=== PATIENT | male | born 1960 | race American Indian/Alaskan Native ===

== ENCOUNTER 2016-09-12 10:17 | Emergency (ER) | payer BC ==
[2016-09-12 11:50] LABS: Eosinophils % (Auto) 3.9 % (0.0-4.3); Hematocrit 46.2 % (35.5-45.6); Hemoglobin 14.8 gm/dl (11.8-15.2); Mean Corpuscular HGB Conc 32 % (32-34); Mean Corpuscular Hemoglobin 28 pg (28-32); Mean Corpuscular Volume 87 fl (84-94); Platelet Count 379 K/mm3 (140-440); Red Cell Distribution Width 13.9 % (13.2-15.2); White Blood Count 10.2 K/mm3 (4.5-11.0)
[2016-09-12 12:00] LABS: Bilirubin,Urine NEG (Negative); Blood,Urine NEG (Negative); Ketones,Urine NEG (Negative); Leukocyte Esterase,Urine NEG (Negative); Mucus,Urine 1+ /HPF; Nitrite,Urine NEG (Negative); Protein,Urine <15 mg/dL mg/dL (Negative); Urobilinogen,Urine < 2.0 mg/dL (<2.0)
[2016-09-12 12:03] LABS: Anion Gap 15 mmol/L; Blood Urea Nitrogen 7 mg/dL (9-20); Calcium 9.2 mg/dL (8.4-10.2); Carbon Dioxide 30 mmol/L (22-30); Chloride 101.2 mmol/L (98-107); Glucose 107 mg/dL (75-100); Potassium 3.9 mmol/L (3.6-5.0); Sodium 142 mmol/L (137-145)
[2016-09-12] MEDS ORDERED: MORPHINE IV ONE (13:26)
[2016-09-12] MEDS ORDERED: ZOFRAN IV ONE (13:26)
[2016-09-12] MEDS ORDERED: NACL 0.9% 1000 ML 1,000 ML IV ONE (13:26)
--- NOTE | 2016-09-12 13:28 | Emergency Department Report ---
HPI - General Chief Complaint: Abdominal Pain Time Seen by Provider: 09/12/16 13:16 - HPI HPI: This is a 56-year-old Afro-[place] male who presents to the emergency department with complaint of a 2 week history of abdominal pains. It is mostly in the upper abdomen. It is associated with one episode of nausea and vomiting both today and 2 weeks ago. He says that he has had decreased bowel movements but did have one today. The bowel movements appear to be changing color from [place] green to a darker green/black. He denies any past medical history. He has been treating himself with Pepto-Bismol and Prilosec without much relief. He has a decreased appetite. He denies any fever, dysuria, obvious rectal bleeding. He does not have a primary care doctor. No recent travel or sick contacts at home. ED Past Medical Hx - Medications Home Medications: Home Medications Medication Instructions Recorded Confirmed Last Taken Type ALBUTEROL Inhaler [ProAir HFA 2 puff IH QID PRN #1 inhalation 09/12/16 Unknown Rx Inhaler] HYDROcodone/APAP 5-325 [[place] 1 each PO Q6HR PRN #10 tablet 09/12/16 Unknown Rx 5/325] Ondansetron [Zofran Odt] 4 mg PO Q8H PRN #10 tab.rapdis 09/12/16 Unknown Rx ED Review of Systems ROS: Stated complaint: VOMITING/ABD PAIN Other details as noted in HPI Comment: All other systems reviewed and negative Constitutional: denies: chills, fever Eyes: denies: eye pain, eye discharge, vision change ENT: denies: ear pain, throat pain Respiratory: denies: cough, shortness of breath, wheezing Cardiovascular: denies: chest pain, palpitations Gastrointestinal: abdominal pain, nausea, vomiting Genitourinary: denies: urgency, dysuria Musculoskeletal: denies: back pain, joint swelling, arthralgia Skin: denies: rash, lesions Neurological: denies: headache, weakness, paresthesias Physical Exam - Physical Exam Vital Signs: Vital Signs 09/12/16 11:17 Temperature 98.1 F Pulse Rate 98 H Respiratory 16 Rate Blood Pressure 144/84 O2 Sat by Pulse 98 Oximetry Physical Exam: GENERAL: The patient is well-developed well-nourished. HEENT: Normocephalic. Atraumatic. Extraocular motions are intact. Patient has moist mucous membranes. Pupils equal reactive to light bilaterally. NECK: Supple. Trachea is midline. CHEST/LUNGS: Clear to auscultation. There is no respiratory distress noted. No cough heard during examination. HEART/CARDIOVASCULAR: Regular. There is no tachycardia. There is no gallop rub or murmur. ABDOMEN: Abdomen is soft. There is some tenderness to palpation to the left side of the abdomen. No guarding rebound tenderness. No peritoneal signs with heel strike. Patient has normal bowel sounds. There is no abdominal distention. SKIN: Skin is warm and dry. NEURO: The patient is awake, alert, and oriented. The patient is cooperative. The patient has no focal neurologic deficits. The patient has normal speech. MUSCULOSKELETAL: There is no tenderness or deformity. There is no limitation range of motion. There is no evidence of acute injury. ED Course Vital Signs 09/12/16 11:17 Temperature 98.1 F Pulse Rate 98 H Respiratory 16 Rate Blood Pressure 144/84 O2 Sat by Pulse 98 Oximetry ED Medical Decision Making - Lab Data Result diagrams: 09/12/16 11:34 09/12/16 11:34 - Radiology Data Radiology results: report reviewed, image reviewed interpreted by me: Abdominal x-ray shows a large amount of nonspecific nonobstructive bowel gas. Radiology later read this x-ray as concern for possible ileus versus localized incomplete partial small bowel disruption. CT of the abdomen and pelvis with IV contrast showed multiple noncalcified gallstones but no signs of cholecystitis. There is some prominence of the prostate and seminal vesicles. - Medical Decision Making 56 year old male presents with a 2 week history of some abdominal discomfort and some intermittent nausea with vomiting. Patient's labs and unremarkable. Vital signs stable throughout his ED course. Abdominal x-ray shows some nonspecific nonobstructive bowel gas when I read the image by radiology was concerned for a localized ileus versus partial incomplete bowel obstruction. This reason a CT of the abdomen pelvis with IV contrast was done that did not show any signs of obstruction. There are noncalcified gallstones without cholecystitis and some prominence to the prostate and seminal vesicles. Patient was given some pain medication while in the emergency department and upon reevaluation is feeling improved. Vital signs stable throughout his ED course. Patient discharged home with some pain medication and referrals for both primary care and gastroenterology. He will return to the ER with any worsening symptoms or any acute distress. - Differential Diagnosis cholecystitis, cholelithiasis, colitis, gastritis, food poisoning Critical Care Time: No Critical care attestation.: If time is entered above; I have spent that time in minutes in the direct care of this critically ill patient, excluding procedure time. ED Disposition Clinical Impression: Chest congestion, Gallstones Abdominal pain Qualifiers: Abdominal location: generalized Qualified Code(s): R10.84 - Generalized abdominal pain Nausea & vomiting Qualifiers: Vomiting type: unspecified Vomiting Intractability: non-intractable Qualified Code(s): R11.2 - Nausea with vomiting, unspecified Disposition: DISCHARGED TO HOME OR SELFCARE Is pt being admited?: No Condition: Stable Instructions: Acute Nausea and Vomiting (ED), Abdominal Pain (ED) Additional Instructions: Please follow-up with a primary care doctor in the next few days. I have also given you a referral for a local glass bulb machine adjuster, Dr. Moreno, in order follow-up regarding your abdominal discomfort. Increase your oral rehydration. Return to the emergency department with any worsening of your symptoms or any acute distress. You've been prescribed a medication that is sedating. Therefore this medication cannot be mixed with alcohol, or taken prior to driving, working, or being responsible for children. Prescriptions: ALBUTEROL Inhaler [ProAir HFA Inhaler] 2 puff IH QID PRN #1 inhalation PRN Reason: Shortness Of Breath HYDROcodone/APAP 5-325 [[place] 5/325] 1 each PO Q6HR PRN #10 tablet PRN Reason: Pain Ondansetron [Zofran Odt] 4 mg PO Q8H PRN #10 tab.rapdis PRN Reason: Nausea Referrals: PRIMARY CARE, [Primary Care Provider] - 3-5 Days THUY MORENO MD [Staff Physician] - 3-5 Days ALBAN STEARNS MD [Staff Physician] - 3-5 Days Time of Disposition: 16:46
[2016-09-12 13:45] LABS: Alanine Aminotransferase 18 units/L (7-56); Albumin 4.4 g/dL (3.9-5); Albumin/Globulin Ratio 1.4 %; Alkaline Phosphatase 89 units/L (35-129); Bilirubin,Total 0.4 mg/dL (0.1-1.2); Lipase 18 units/L (13-60); Total Protein 7.6 g/dL (6.3-8.2)
[2016-09-12 13:51] LABS: Bilirubin,Direct < 0.2 mg/dL (0-0.2); Bilirubin,Indirect 0.2 mg/dL
[2016-09-12] MEDS ORDERED: NACL ONE ×2 (14:08→14:33)
--- NOTE | 2016-09-12 14:22 | XRay Report ---
Abdomen 2 views: History: Abdominal pain. Findings: Few distended loops of small bowel in lumbar area. Minimal air in large bowel with stool in ascending colon. No air fluid levels. No free intraperitoneal air. No radiopaque calculus or abnormal calcification. Impression: Localized ileus or early incomplete small bowel obstruction.
--- NOTE | 2016-09-12 15:26 | Cat Scan Report ---
CT of the abdomen and pelvis with IV contrast. History: Abdominal pain. Findings: The liver, spleen, and pancreas appear normal. A few tiny noncalcified cholesterol gallstones are noted. The wall of the gallbladder is not thickened. The kidneys are normal in size and configuration with no evidence of mass or hydronephrosis. The adrenal glands are normal. There is no adenopathy within the retroperitoneum. There no pelvic masses or abnormal fluid collections. There is no evidence of appendicitis. The prostate and seminal vesicles are slightly prominent in size. Impression: 1. Multiple noncalcified gallstones. 2. Nonspecific mild prominence of the prostate and seminal vesicles.
--- NOTE | 2016-09-12 16:29 | XRay Report ---
ROUTINE CHEST, TWO VIEWS: History: Dyspnea. PA and lateral views demonstrate the heart and mediastinal contour to be of normal size and shape. The lungs are clear and fully expanded and the soft tissues and bony structures are normal. IMPRESSION: Normal study.
[2016-09-12 16:44] VITALS: BP 128/83
== END 2016-09-12 16:59 | disposition home or self-care (01) ==
LOC: ED 10:17
DX: K80.80 Other cholelithiasis without obstruction (principal); R09.89 Other specified symptoms and signs involving the circulatory and respiratory systems
CPT/HCPCS: 36415; 71020; 74020; 74177; 80048; 80074; 81001; 83690; 85025; 96361; 96374; 96375; 99284; J2270; J2405; J7030; Q9967